=== PATIENT | male | born 1980 | race Caucasian/White ===

== ENCOUNTER → 2021-01-25 | Outpatient (CLI) | payer OTHER ==
[~2021-01-25] MED LIST: AMOXICILLIN500 MG PO; CYCLOBENZAPRINE10 MG PO; IBU800 MG PO; IBUPROFEN800 MG PO; KEFLEX CAP 500500 MG PO
== END ==
LOC: EXRD 13:39
DX: M54.5 Low back pain (principal)
CPT/HCPCS: 72100

== ENCOUNTER → 2021-03-08 | Outpatient (CLI) | payer OTHER | LOC: EXRD 11:29 | DX: R01.2 Other cardiac sounds (principal) | CPT/HCPCS: 71046 ==

== ENCOUNTER → 2021-04-09 | Outpatient (CLI) | payer OTHER | LOC: KOH-I 16:00 | DX: M47.26 Other spondylosis with radiculopathy, lumbar region (principal); M51.16 Intervertebral disc disorders with radiculopathy, lumbar region; M47.27 Other spondylosis with radiculopathy, lumbosacral region; M48.061 Spinal stenosis, lumbar region without neurogenic claudication; M48.07 Spinal stenosis, lumbosacral region | CPT/HCPCS: 72148 ==

== ENCOUNTER 2021-06-11 03:50 | Emergency (ER) | payer OTHER ==
[2021-06-11 04:29] LABS: HEMOGLOBIN 14.1 gm/dl (14.0-17.5); RED BLOOD COUNT 4.46 M/UL (4.20-5.50); WHITE BLOOD COUNT 10.9 K/UL (4.5-11.0)
[2021-06-11 05:08] LABS: BUN/CREATININE RATIO 14 (0-10)
== END 2021-06-11 10:35 | disposition left against medical advice (07) ==
LOC: ER1 03:50
PROVIDERS: Physician Assistant
DX: R07.9 Chest pain, unspecified (principal); R06.02 Shortness of breath; F17.210 Nicotine dependence, cigarettes, uncomplicated; Z20.822 Contact with and (suspected) exposure to COVID-19
CPT/HCPCS: 71045; 80053; 82550; 82553; 83874; 84484; 85025; 93005; 99285; U0002

== ENCOUNTER 2022-06-04 21:17 | Emergency (ER) | payer OTHER ==
[2022-06-04] MEDS ORDERED: OMNICEF 300 MG300 MG PO (22:49)
[2022-06-04] MEDS ORDERED: HYDROCODON-ACE1 EAC4 PO (22:49)
== END 2022-06-04 23:59 | disposition home or self-care (01) ==
LOC: ER1 21:17
DX: S68.122A Partial traumatic metacarpophalangeal amputation of right middle finger, initial encounter (principal); F17.200 Nicotine dependence, unspecified, uncomplicated; W31.89XA Contact with other specified machinery, initial encounter
CPT/HCPCS: 11042; 73140; 90471; 90715; 96365; 96375; 96376; 99283; J0690; J1170

== ENCOUNTER 2022-06-08 15:58 | Emergency (ER) | payer OTHER ==
[~2022-06-08 15:58] MED LIST changes: +HYDROCODON-ACE1 EAC4 PO; +OMNICEF 300 MG300 MG PO
== END 2022-06-08 17:51 | disposition home or self-care (01) ==
LOC: ER1 15:58
DX: S68.122D Partial traumatic metacarpophalangeal amputation of right middle finger, subsequent encounter (principal); F17.200 Nicotine dependence, unspecified, uncomplicated; X58.XXXD Exposure to other specified factors, subsequent encounter
CPT/HCPCS: 99282